=== PATIENT | female | born 1970 | race Caucasian/White ===

== ENCOUNTER → 2017-05-02 | Outpatient (CLI) | payer OTHER ==
[~2017-05-02] MED LIST: ONDA4ODT MM
[2017-05-04 11:44] LABS: HPV Genotype 16 Not Detected (NOTDET); HPV Genotype 18 Not Detected (NOTDET)
[2017-05-10 13:29] LABS: HPV High Risk Other Not Detected (NOTDET)
== END ==
LOC: LAB 15:04
PROVIDERS: Nurse Practitioner Family
DX: Z01.419 Encounter for gynecological examination (general) (routine) without abnormal findings (principal)
CPT/HCPCS: 87624; G0145

== ENCOUNTER 2019-10-10 10:21 | Day surgery (SDC) | payer OTHER ==
[~2019-10-10] VITALS: Ht 172.7 cm; Wt 70.2 kg
[~2019-10-10 10:21] MED LIST changes: +IBUP200; +Imitrex50 MG; +MIRALAX17 GM; +PRAV20; +SERT100
== END 2019-10-10 12:49 | disposition home or self-care (01) ==
LOC: ORSCSDS 10:21
PROVIDERS: Internal Medicine Gastroenterology
PROC: 0DJD8ZZ Inspection of Lower Intestinal Tract, Via Natural or Artificial Opening Endoscopic (ICD-10-PCS; principal; 2019-10-10 11:45)
DX: Z12.11 Encounter for screening for malignant neoplasm of colon (principal); Z80.0 Family history of malignant neoplasm of digestive organs; Z79.899 Other long term (current) drug therapy
CPT/HCPCS: J2704; J7120

== ENCOUNTER 2023-06-02 19:22 | Emergency (ER) | payer OTHER ==
[~2023-06-02] VITALS: Ht 172.7 cm; Wt 61.2 kg
[2023-06-02 20:27] VITALS: BP 212/113
[2023-06-02] MEDS ORDERED: HyDROXyzine HCl 25 MG Tab PO ONE (21:15)
[2023-06-02] MEDS ORDERED: Vistaril25 MG PO (21:16)
[2023-06-07] MEDS ORDERED: PRAV20 PO (02:58)
[2023-06-07] MEDS ORDERED: ZOLOFT25 MG PO (02:59)
== END 2023-06-02 21:28 | disposition home or self-care (01) ==
LOC: ER 19:22
DX: F41.9 Anxiety disorder, unspecified (principal); F43.9 Reaction to severe stress, unspecified; Z79.899 Other long term (current) drug therapy; Z88.0 Allergy status to penicillin
CPT/HCPCS: 93005; 93010; 99284-25; A9270